=== PATIENT | female | born 1955 | race Caucasian/White ===

== ENCOUNTER → 2019-04-07 | Outpatient (CLI) | payer OTHER ==
[~2019-04-07] MED LIST: ALBIPROI INH; ALBU90OI; CODACE30 PO; FLUO10; FLUSAL2505; HYDACE5 PO; LORA10ER PO; META800 PO; MONT4 PO; NAPR375 PO; OXYACE5T PO; POTCHL20ER PO; RANI150 PO; SULTRIDS PO; TRIHYD253A
[2019-04-08 00:14] LABS: Candida species (DNA Probe) Negative (NEGATIVE); G. vaginalis (DNA Probe) Negative (NEGATIVE); T. vaginalis (DNA Probe) Negative (NEGATIVE)
[2019-04-09 05:08] LABS: CHLAMYDIA TRACHOMATIS, NAA Negative (Negative); NEISSERIA GONORRHOEAE, NAA Negative (Negative)
== END ==
LOC: LAB 15:20 → LAB SHORT 15:20
PROVIDERS: Nurse Practitioner Family
DX: N89.8 Other specified noninflammatory disorders of vagina (principal)
CPT/HCPCS: 87480; 87510; 87660

== ENCOUNTER 2023-02-12 06:40 | Day surgery (SDC) | payer OTHER ==
[~2023-02-12] VITALS: Ht 160 cm; Wt 100.0 kg
[2023-02-12] VITALS (17 sets, daily range): BP systolic 95–125; BP diastolic 41–84
[~2023-02-12 06:40] MED LIST changes: -ALBU90OI; +ALBU90OI INH; +ATOR40TA PO; +DYAZIDE PO; +FISH OIL 1,2001 EAC7 PO; +FLUC200 PO; +KLOR-CON 1010 ME9 PO; +LISI5 PO; +MONT10T PO; -MONT4 PO; +OMEP20ER PO; +PRED20 PO; -TRIHYD253A
[2023-02-12] MEDS ORDERED: Dyazide 37.5-21 EACH PO (07:11)
--- NOTE | 2023-02-12 07:39 | NUR ---
Wheelchaired into Day Surgery History, Chart, Medications and Allergies reviewed before start of procedure. Pre-Op teaching done. Pt verbalizes understanding.
--- NOTE | 2023-02-12 13:11 | NUR ---
ADMISSION/POST OP: REPORT RECEIVED FROM STONE DECORATOR. PT TO ROOM AT ABOUT 1115. A/O, VSS. SURGICAL SITE WNL, SEE DERMATONE ASSESSMENT. DENIES NAUSEA OR PAIN AT THIS TIME . PT INSTRUCTED SOFTWARE SALES EXECUTIVE LIGHT USE AND FIRE SAFETY/IGNITION SOURCE ASSESSMENT COMPLETE. PT DENIES ANY IGNITION SOURCE AND REPORTS DOES NOT SMOKE. CALL LIGHT IN REACH
--- NOTE | 2023-02-12 15:06 | NUR ---
"Spiritual Care | Pt. Request Pt. is awake in bed and welcomes my visit. Pt. is in recovery after a knee replacement. Pt. is pleasant. Facilitate a life review. Listen with empathy and a calming presence. Considered matters of garrison and belief and normalized the Pt. experiemce. Pt. displays evidence of both awareness and engagement. Prayed with Pt. Pt. verbalized gratitude for the spiritual care visit."
--- NOTE | 2023-02-12 17:57 | NUR ---
SUMMARY: NO ACUTE CHANGE SINCE POST OP. VSS, A/O. PAIN MANAGED, PT NOW HAS FULL SENSATION. PT ABLE TO AMBULATE WITH THERAPY AND VOID. SURGICAL SITE WNL. NO N/V. PT USING CALL LIGHT. PLAN IS FOR DC TOMORROW, NO ACUTE SAFETY CONCERNS.
[2023-02-13 02:43] VITALS: BP 104/58
[2023-02-13 04:46] LABS: BASOPHILS ABSOLUTE AUTO 0.02 K/mm3 (0.00-0.23); BASOPHILS PERCENT AUTO 0 % (0-2); EOSINOPHILS ABSOLUTE AUTO 0.01 K/mm3 (0.00-0.68); EOSINOPHILS PERCENT AUTO 0 % (0-6); Hematocrit 30.5 % (33.0-51.0); Hemoglobin 10.4 g/dL (11.5-16.0); IMMATURE GRAN ABSOLUTE AUTO 0.06 K/mm3 (0.00-0.10); IMMATURE GRAN PERCENT AUTO 1 % (0-1); LYMPHOCYTES ABSOLUTE AUTO 1.88 K/mm3 (0.84-5.20); LYMPHOCYTES PERCENT AUTO 14 % (21-46); MONOCYTES ABSOLUTE AUTO 0.83 K/mm3 (0.16-1.47); MONOCYTES PERCENT AUTO 6 % (4-13); Mean Corpuscular HGB 31.3 pg (26.0-34.0); Mean Corpuscular HGB Conc 34.1 g/dL (31.5-36.5); Mean Corpuscular Volume 92 fL (80-100); Mean Platelet Volume 10.8 fL (9.1-12.4); NEUTROPHILS ABSOLUTE AUTO 10.23 K/mm3 (1.96-9.15); NEUTROPHILS PERCENT AUTO 78 % (41-73); Platelet Count 226 K/mm3 (150-400); RDW Coefficient Variation 12.8 % (11.7-14.2); RDW Standard Deviation 42.4 fL (35.1-46.3); Red Blood Cell Count 3.32 M/mm3 (3.80-5.20); White Blood Cell Count 13.03 K/mm3 (4.00-11.30)
[2023-02-13 05:28] LABS: Bun/Creatinine Ratio 23.5 (12.0-20.0); Calcium, Blood 9.5 mg/dL (8.5-10.1); Creatinine, Blood 0.85 mg/dL (0.40-1.00); Potassium, Blood 4.3 mmol/L (3.5-5.5)
--- NOTE | 2023-02-13 06:23 | NUR ---
SHIFT SUMMARY POD 1 R TKA, AQUACEL AND JESSICA C/D/I. A&OX4, PLEASANT AND COOPERATIVE. URINATING WELL, AMB TO BATHROOM W/ FWW AND GB. UP TO RECLINER THIS A.M. NO ACUTE CHANGES THIS SHIFT. CALL LIGHT W/IN REACH. PT PLANS FOR DISCHARGE TODAY.
[2023-02-13 06:37] VITALS: BP 104/52
[2023-02-13] MEDS ORDERED: Percocet 5-3251 EACH PO (09:57)
[2023-02-13] MEDS ORDERED: ASPI81CH PO (09:58)
--- NOTE | 2023-02-13 10:46 | NUR ---
DISCHARGE PATIENT DISCHARGED OUT VIA W/C WITH ALL POSSESSIONS, DISCHARGE INSTRUCTIONS AND PRESCRIPTIONS. IV TAKEN OUT BY [employer] MANAGER WITH NO SS OF SWELLING OR REDDNESS.
== END 2023-02-13 10:53 | disposition home or self-care (01) ==
LOC: ORSCMMR 06:40 → ORD 08:15 → ORSCMMR 08:15 → SURS 11:25 → ORSCMMR 11:25 → SURS 23:14 → ORSCMMR 23:14 → SURS 02-13 10:53 → ORSCMMR 02-13 10:53
PROVIDERS: Orthopaedic Surgery
PROC: 0SRC0JA Replacement of Right Knee Joint with Synthetic Substitute, Uncemented, Open Approach (ICD-10-PCS; principal; 2023-02-12 08:15)
DX: M17.11 Unilateral primary osteoarthritis, right knee (principal); I12.9 Hypertensive chronic kidney disease with stage 1 through stage 4 chronic kidney disease, or unspecified chronic kidney disease; N18.9 Chronic kidney disease, unspecified; Z79.899 Other long term (current) drug therapy; E66.9 Obesity, unspecified; Z68.39 Body mass index [BMI] 39.0-39.9, adult
CPT/HCPCS: 36415; 73560-RT; 80048; 85025; 94660; 94762; 97110; 97116; 97162; 97530; A9270; C1776; J0171; J0690; J0735; J1100; J1170; J1885; J2250; J2371; J2405; J2704; J2795; J3010; J7120

== ENCOUNTER 2023-09-05 18:14 | Emergency (ER) | payer OTHER ==
[~2023-09-05] VITALS: Ht 160 cm; Wt 96.2 kg
[~2023-09-05 18:14] MED LIST changes: +ASPI81CH PO; +Dyazide 37.5-21 EACH PO; +Percocet 5-3251 EACH PO
[2023-09-05 19:09] LABS: BASOPHILS ABSOLUTE AUTO 0.04 K/mm3 (0.00-0.23); BASOPHILS PERCENT AUTO 1 % (0-2); EOSINOPHILS ABSOLUTE AUTO 0.08 K/mm3 (0.00-0.68); EOSINOPHILS PERCENT AUTO 1 % (0-6); Hematocrit 36.4 % (33.0-51.0); Hemoglobin 12.4 g/dL (11.5-16.0); IMMATURE GRAN ABSOLUTE AUTO 0.02 K/mm3 (0.00-0.10); IMMATURE GRAN PERCENT AUTO 0 % (0-1); LYMPHOCYTES ABSOLUTE AUTO 3.14 K/mm3 (0.84-5.20); LYMPHOCYTES PERCENT AUTO 46 % (21-46); MONOCYTES ABSOLUTE AUTO 0.37 K/mm3 (0.16-1.47); MONOCYTES PERCENT AUTO 5 % (4-13); Mean Corpuscular HGB Conc 34.1 g/dL (31.5-36.5); Mean Corpuscular Volume 94 fL (80-100); Mean Platelet Volume 10.6 fL (9.1-12.4); NEUTROPHILS ABSOLUTE AUTO 3.18 K/mm3 (1.96-9.15); NEUTROPHILS PERCENT AUTO 47 % (41-73); Platelet Count 253 K/mm3 (150-400); RDW Coefficient Variation 12.9 % (11.7-14.2); RDW Standard Deviation 44.4 fL (35.1-46.3); Red Blood Cell Count 3.87 M/mm3 (3.80-5.20); White Blood Cell Count 6.83 K/mm3 (4.00-11.30)
[2023-09-05 19:21] LABS: Albumin, Blood 3.8 g/dL (3.4-5.0); Albumin/Globulin Ratio 1.2 (0.8-1.8); Bilirubin, Total 0.4 mg/dL (0.1-1.0); Bun/Creatinine Ratio 16.6 (12.0-20.0); Calcium, Blood 9.9 mg/dL (8.5-10.1); Creatinine, Blood 0.96 mg/dL (0.40-1.00); Globulin, Blood 3.2 g/dL (2.2-4.0); Potassium, Blood 3.6 mmol/L (3.5-5.5)
[2023-09-05] MEDS ORDERED: TERB250 PO (19:22)
[2023-09-05 21:00] VITALS: BP 95/57
== END 2023-09-05 21:23 | disposition home or self-care (01) ==
LOC: ER 18:14
PROVIDERS: Emergency Medicine
DX: R55 Syncope and collapse (principal); K21.9 Gastro-esophageal reflux disease without esophagitis; I10 Essential (primary) hypertension; J45.909 Unspecified asthma, uncomplicated; G47.30 Sleep apnea, unspecified; E78.5 Hyperlipidemia, unspecified; Z79.82 Long term (current) use of aspirin; Z79.899 Other long term (current) drug therapy; Z88.5 Allergy status to narcotic agent
CPT/HCPCS: 71045; 80053; 84484; 85025; 93005; 93010; 99284-25

== ENCOUNTER 2024-05-19 07:34 | Day surgery (SDC) | payer OTHER ==
[~2024-05-19] VITALS: Ht 160 cm; Wt 100.0 kg
[2024-05-19] VITALS (15 sets, daily range): BP systolic 101–151; BP diastolic 56–88
[~2024-05-19 07:34] MED LIST changes: +LISINOPRIL PO; +TERB250 PO; +[UNRECOGNIZED DRUG - OTHER] PO
[2024-05-19] MEDS ORDERED: Lactated Ringer's 1,000 ML IV SCH ×2 (08:15→09:20)
[2024-05-19] MEDS ORDERED: CeFAZolin Sodium 2,000 MG in NS 100 ML IV SCH ×2 (08:15→18:00)
[2024-05-19] MEDS ORDERED: Ropivacaine 0.5% HCl/Pf 123.125 MG,EPINEPHrine HCL 0.25 MG,Ketorolac Tromethamine 15 MG... INFIL SCH (08:15)
[2024-05-19] MEDS ORDERED: Chlorhexidine Mouth Care 15 ML UDC MT SCH (08:15)
[2024-05-19] MEDS ORDERED: Acetaminophen 500 MG Tab PO SCH ×2 (08:15→16:00)
[2024-05-19] MEDS ORDERED: Tranexamic Acid 100 ML IV SCH (08:15)
[2024-05-19] MEDS ORDERED: propofoL 40 ML IV ONE (08:23)
[2024-05-19] MEDS ORDERED: FentaNYL Citrate 50 MCG/ML 2 ML Injection ONE (08:23)
[2024-05-19] MEDS ORDERED: CeFAZolin Sodium 2,000 MG VIAL ONE (08:51)
[2024-05-19] MEDS ORDERED: DiphenhydrAMINE HCL 25 MG Cap PO PRN (09:15)
[2024-05-19] MEDS ORDERED: FLU VACC TS2024-25(6MOS UP)/PF 45 MCG/0.5 ML SYRINGE IM SCH (09:15)
[2024-05-19] MEDS ORDERED: HYDROmorphone HCl/Pf 1MG SYR IV PRN (09:15)
[2024-05-19] MEDS ORDERED: Albuterol HFA200 ACT/6.7 GM INH INH PRN ×2 (09:15→10:10)
[2024-05-19] MEDS ORDERED: Bisacodyl 10 MG Supp PR PRN (09:15)
[2024-05-19] MEDS ORDERED: Promethazine HCl 25 MG Tab PO PRN (09:20)
[2024-05-19] MEDS ORDERED: OxyCODONE HCL 5 MG TAB PO PRN ×2 (09:20)
[2024-05-19] MEDS ORDERED: Ondansetron HCl 2 MG / ML 2ML Vial IV PRN (09:25)
[2024-05-19] MEDS ORDERED: OxyCODONE HCL 10 MG TABCR PO SCH (09:25)
[2024-05-19] MEDS ORDERED: Magnesium Hydroxide Conc 10 ML UDC PO PRN (09:25)
[2024-05-19] MEDS ORDERED: Metoclopramide HCl 5MG / ML 2ML Vial IV PRN (09:25)
--- NOTE | 2024-05-19 09:46 | NUR ---
0910 AMBULATE TO [facility] CONFIRMED SURGERY AND SURGEON,PT VOIDED DAUGHTER AT BEDSIDE. PRE OP TEACHING DONE. 0940 EYE GLASSES, CANE AND BELONGINGS TAKEN TO PACU
[2024-05-19] MEDS ORDERED: Albuterol HFA200 ACT/6.7 GM INH ONE (10:11)
--- NOTE | 2024-05-19 10:29 | NUR ---
05/19/24 1029 Valarie,Debi SPINAL BLOCK COMPLETED BY UPON ENTRY TO OR.
[2024-05-19] MEDS ORDERED: propofoL 20 ML IV ONE (10:51)
[2024-05-19] MEDS ORDERED: Ketorolac Tromethamine 15mg Vial IV SCH (12:00)
--- NOTE | 2024-05-19 12:34 | NUR ---
TRANSFER TO UNIT AFTER RECEIVING REPORT FROM FOUNDRY PROCESS ENGINEER, PATIENT TRANSFERRED TO UNIT VIA BED AT APPROX 1220. PATIENT ALERT AND ORIENTED X4. S/P L TKA WITH SPINAL - DENIES SENSATION TO BLE, UNABLE TO WIGGLE TOES. AQUACEL AND JESSICA WRAP DX - NO SHADOWING NOTED ON JESSICA WRAP. COOLING DEVICE IN PLACE. VSS. ON ROOM AIR, SATs >90%. TOLERATING WATER AND SMALL SNACKS. LR INFUSING PER EMAR. CALL LIGHT IN REACH. DAUGHTER AT BEDSIDE.
--- NOTE | 2024-05-19 17:15 | NUR ---
SHIFT SUMMARY NO ACUTE CHANGES SINCE ARRIVAL TO UNIT. VS REMAIN STABLE. S/P L TKA - DRESSING REMAINS C/D/I. NO SHADOWING NOTED ON JESSICA WRAP. WORKED WITH PHYSICAL THERAPY - X1 EPISODE OF DIZZINESS WITH MOBILITY THAT IMPROVED AT REST. THERAPY RECOMMENDING DC TOMORROW MORNING FOLLOWING SECOND EVAL. UP WITH 1P ASSIST FWW - CURRENTLY SITTING IN RECLINER CHAIR. PAIN MANAGED PER EMAR AND WITH COOLING DEVICE. TOLERATING PO INTAKE. LR INFUSING PER EMAR. VOIDING. CALL LIGHT IN REACH. WILL CONTINUE TO MONITOR AND REPORT TO ONCOMING RN.
[2024-05-19] MEDS ORDERED: Docusate Sodium 100 MG Cap PO SCH (21:00)
[2024-05-20 04:44] VITALS: BP 153/75
[2024-05-20 05:16] LABS: BASOPHILS ABSOLUTE AUTO 0.03 K/mm3 (0.00-0.23); BASOPHILS PERCENT AUTO 1 % (0-2); EOSINOPHILS ABSOLUTE AUTO 0.02 K/mm3 (0.00-0.68); EOSINOPHILS PERCENT AUTO 0 % (0-6); Hematocrit 30.7 % (33.0-51.0); Hemoglobin 10.3 g/dL (11.5-16.0); IMMATURE GRAN ABSOLUTE AUTO 0.02 K/mm3 (0.00-0.10); IMMATURE GRAN PERCENT AUTO 0 % (0-1); LYMPHOCYTES ABSOLUTE AUTO 1.11 K/mm3 (0.84-5.20); LYMPHOCYTES PERCENT AUTO 19 % (21-46); MONOCYTES ABSOLUTE AUTO 0.42 K/mm3 (0.16-1.47); MONOCYTES PERCENT AUTO 7 % (4-13); Mean Corpuscular HGB 31.7 pg (26.0-34.0); Mean Corpuscular HGB Conc 33.6 g/dL (31.5-36.5); Mean Corpuscular Volume 95 fL (80-100); Mean Platelet Volume 9.7 fL (9.1-12.4); NEUTROPHILS ABSOLUTE AUTO 4.11 K/mm3 (1.96-9.15); NEUTROPHILS PERCENT AUTO 72 % (41-73); Platelet Count 178 K/mm3 (150-400); RDW Coefficient Variation 13.1 % (11.7-14.2); RDW Standard Deviation 45.3 fL (35.1-46.3); Red Blood Cell Count 3.25 M/mm3 (3.80-5.20); White Blood Cell Count 5.71 K/mm3 (4.00-11.30)
--- NOTE | 2024-05-20 05:27 | NUR ---
SHIFT SUMMARY PT POD 0 LEFT TKA. PT HAS BEEN UP AND AMBULATING, VOIDING AND TOLERATING PO INTAKE. SURGICAL SITE WNL, DRESSING C/D/I. POST OP ANTIBIOTICS INFUSED. PT REPORTS CHRONIC PAIN IN RIGHT KNEE WELL IN OPERATIVE KNEE. PAIN MANAGED WITH MEDS PER EMAR. VITALS STABLE. PLAN OF CARE UNCHANGED. PLAN IS FOR DC TODAY. BED IN LOWEST POSITION, CALL LIGHT WITHIN REACH.
[2024-05-20 05:40] LABS: Bun/Creatinine Ratio 18.3 (12.0-20.0); Calcium, Blood 9.2 mg/dL (8.5-10.1); Creatinine, Blood 0.87 mg/dL (0.40-1.00); Potassium, Blood 4.1 mmol/L (3.5-5.5)
[2024-05-20 07:42] VITALS: BP 152/62
[2024-05-20] MEDS ORDERED: Aspirin 81 MG Chew PO SCH (09:00)
[2024-05-20] MEDS ORDERED: Potassium Chloride 10 Meq Tablet SA PO SCH (09:00)
[2024-05-20] MEDS ORDERED: Montelukast Sodium 10 MG Tab PO SCH (09:00)
[2024-05-20] MEDS ORDERED: Atorvastatin 40 MG Tab PO SCH (09:00)
[2024-05-20] MEDS ORDERED: Lisinopril 10 MG Tab PO SCH (09:00)
[2024-05-20] MEDS ORDERED: ASPI81CH PO (09:26)
--- NOTE | 2024-05-20 10:07 | NUR ---
DISCHARGE PT HAS CLEARED THERAPY. PAIN WELL CONTROLLED. EATING, DRINKING, & VOIDING WELL. DRSGS, SCRIPT, & POLAR PACK SENT w/ PT. ESCORTED OUT VIA W/C.
== END 2024-05-20 10:00 | disposition home or self-care (01) ==
LOC: ORSCMMR 07:34 → ORD 09:15 → ORSCMMR 12:22 → SURS 12:22 → ORSCMMR 05-20 10:00
PROVIDERS: Orthopaedic Surgery
DX: M17.12 Unilateral primary osteoarthritis, left knee (principal); Z96.651 Presence of right artificial knee joint; E78.5 Hyperlipidemia, unspecified; Z79.899 Other long term (current) drug therapy; G47.33 Obstructive sleep apnea (adult) (pediatric); I12.9 Hypertensive chronic kidney disease with stage 1 through stage 4 chronic kidney disease, or unspecified chronic kidney disease; N18.9 Chronic kidney disease, unspecified; J45.909 Unspecified asthma, uncomplicated; E66.9 Obesity, unspecified; Z68.39 Body mass index [BMI] 39.0-39.9, adult
CPT/HCPCS: 36415; 73560-LT; 80048; 85025; 94762; 97110; 97116; 97161; 97530; A6010; A9270; C1713; C1776; J0171; J0690; J0735; J1885; J2704; J2795; J3010; J7120

== ENCOUNTER 2025-01-23 20:01 | Emergency (ER) | payer OTHER ==
[~2025-01-23] VITALS: Ht 160 cm; Wt 98.4 kg
[2025-01-24 00:46] LABS: BASOPHILS ABSOLUTE AUTO 0.06 K/mm3 (0.00-0.23); BASOPHILS PERCENT AUTO 1 % (0-2); EOSINOPHILS ABSOLUTE AUTO 0.08 K/mm3 (0.00-0.68); EOSINOPHILS PERCENT AUTO 1 % (0-6); Hematocrit 35.2 % (33.0-51.0); Hemoglobin 11.8 g/dL (11.5-16.0); IMMATURE GRAN ABSOLUTE AUTO 0.01 K/mm3 (0.00-0.10); IMMATURE GRAN PERCENT AUTO 0 % (0-1); LYMPHOCYTES ABSOLUTE AUTO 3.29 K/mm3 (0.84-5.20); LYMPHOCYTES PERCENT AUTO 43 % (21-46); MONOCYTES ABSOLUTE AUTO 0.54 K/mm3 (0.16-1.47); MONOCYTES PERCENT AUTO 7 % (4-13); Mean Corpuscular HGB Conc 33.5 g/dL (31.5-36.5); Mean Corpuscular Volume 96 fL (80-100); NEUTROPHILS ABSOLUTE AUTO 3.62 K/mm3 (1.96-9.15); NEUTROPHILS PERCENT AUTO 48 % (41-73); NRBC ABSOLUTE 0.00 K/mm3 (0.00-0.02); NRBC Auto 0.0 /100 WBC (0.0-0.2); Platelet Count 261 K/mm3 (150-400); RDW Coefficient Variation 13.2 % (11.7-14.2); RDW Standard Deviation 47.4 fL (35.1-46.3)
[2025-01-24 01:04] LABS: Alanine Aminotransfer (ALT/SGP 31.0 U/L (12-78); Albumin, Blood 3.9 g/dL (3.4-5.0); Albumin/Globulin Ratio 1.2 (0.8-1.8); Anion Gap 9.0 mmol/L (3-11); Aspartate Aminotrans (AST/SGOT 21.0 U/L (12-37); Bilirubin, Total 0.3 mg/dL (0.1-1.0); Blood Urea Nitrogen 20.0 mg/dL (8-24); CO2, Blood 27.0 mmol/L (21-32); Calcium, Blood 9.3 mg/dL (8.5-10.1); Chloride, Blood 105.0 mmol/L (98-108); Creatinine, Blood 0.99 mg/dL (0.40-1.00); Globulin, Blood 3.3 g/dL (2.2-4.0); Glucose, Blood 80.0 mg/dL (70-99); Potassium, Blood 3.6 mmol/L (3.5-5.5); Sodium, Blood 137.0 mmol/L (136-145); Total Protein, Blood 7.2 g/dL (6.4-8.2)
[2025-01-24 01:21] LABS: Source, Urine Clean Catch
[2025-01-24 02:00] LABS: Bilirubin, Urine Neg (Neg); Glucose Qualitative, Urine Neg (Neg); Ketones, Urine Neg (Neg); Leukocyte Esterase, Urine Neg (Neg); Protein, Urine Neg (Neg); Specific Gravity, Urine 1.010 (1.003-1.022); Urobilinogen, Urine NORM (Normal)
[2025-01-24 02:01] LABS: Color, Urine Pale Yellow (P-Yellow)
[2025-01-24 02:03] LABS: Red Blood Cells, Urine 0-2 /hpf (0-2); White Blood Cells, Urine 0-2 /hpf (0-5)
[2025-01-24 02:45] VITALS: BP 138/78
== END 2025-01-24 02:48 | disposition home or self-care (01) ==
LOC: ER 20:01
PROVIDERS: Student in an Organized Health Care Education/Training Program
DX: R42 Dizziness and giddiness (principal); K21.9 Gastro-esophageal reflux disease without esophagitis; G47.30 Sleep apnea, unspecified; E78.5 Hyperlipidemia, unspecified; J45.909 Unspecified asthma, uncomplicated; I10 Essential (primary) hypertension; Z79.82 Long term (current) use of aspirin; Z79.899 Other long term (current) drug therapy; Z88.5 Allergy status to narcotic agent; Z88.8 Allergy status to other drugs, medicaments and biological substances
CPT/HCPCS: 71046; 80053; 81001; 84484; 85025; 93005; 93010; 99284-25